=== PATIENT | male | born 1995 | race Caucasian/White ===

== ENCOUNTER 2022-05-17 00:01 | Emergency (ER) | payer OTHER ==
[~2022-05-17] VITALS: Ht 172.7 cm; Wt 88.5 kg
[2022-05-17 00:11] VITALS: BP_SYST 131
--- NOTE | 2022-05-17 00:16 | NUR ---
Patient recieved second dose of covid vaccine on 05/12 and started vomiting since 05/14. No other symptoms at this time.
[2022-05-17] MEDS: NACL 0.9% 1,000 ML IV ONE ×2 (01:12→02:25)
[2022-05-17] MEDS: ONDANSETRON HCL 4 MG/2 ML VIAL IVP ONE (01:13)
[2022-05-17] MEDS: ACETAMINOPHEN 500 MG TABLET PO ONE (01:15)
[2022-05-17] MEDS: LORazepam 2 MG/ML VIAL IVP ONE (01:15)
--- NOTE | 2022-05-17 01:16 | NUR ---
# 20 gauge angiocath placed to . Use of asceptic technique. Opsite placed over site. Blood return noted. Blood for lab drawn from site. Flushed with 10 cc of normal saline. No evidence of infiltration noted. Patient tolerated well.
[2022-05-17 01:21] LABS: WHITE BLOOD COUNT (AUTO) 5.7 K/uL (4.8-10.8)
[2022-05-17 01:25] LABS: CALCIUM 8.2 mg/dL (8.4-11.0); CREATININE 0.88 mg/dL (0.55-1.30)
[2022-05-17 01:27] LABS: BASOPHILS % (AUTO) 0.3 % (0.0-2.0); HEMATOCRIT 39.1 % (36-54); HEMOGLOBIN 14.2 g/dL (14.0-18.0); LYMPHOCYTES # (AUTO) 1.2 K/uL (1.0-5.5); LYMPHOCYTES % (AUTO) 20.4 % (20.5-51.5); MEAN CORPUSCULAR HEMOGLOBIN 34 pg (27-31); MEAN CORPUSCULAR HGB CONC 36 % (32-36); MEAN CORPUSCULAR VOLUME 93 fL (79.0-98.0); MONOCYTES # (AUTO) 0.5 K/uL (0.0-1.0); MONOCYTES % (AUTO) 8.4 % (1.7-9.3); NEUTROPHILS % (AUTO) 70.9 % (40.0-70.0); PLATELET COUNT (AUTO) 258 K/uL (130-430); RED CELL DISTRIBUTION WIDTH 13.5 % (9.0-15.0)
[2022-05-17 01:30] LABS: ALBUMIN 3.7 g/dL (3.4-4.8); TOTAL BILIRUBIN 2.7 mg/dL (0.0-1.0)
[2022-05-17 01:41] LABS: POTASSIUM 2.8 mmol/L (3.5-5.1)
--- NOTE | 2022-05-17 01:44 | NUR ---
Patient resting in bed, no signs of distress noted at this time. Waiting for further orders.
[2022-05-17] MEDS: POTASSIUM CHLORIDE 20 MEQ TAB.PRT.SR PO ONE (01:53)
[2022-05-17] MEDS ORDERED: ONDA-8 TL (02:16)
--- NOTE | 2022-05-17 02:25 | NUR ---
URINE SENT TO LAB
[2022-05-17] MEDS: PROCHLORPERAZINE EDISYLATE 10 MG/2 ML VIAL IVP ONE (02:51)
[2022-05-17 02:58] LABS: BILIRUBIN,URINE 1+ (NEGATIVE); BLOOD, URINE NEGATIVE (NEGATIVE); CLARITY/URINE CLEAR (CLEAR); COLOR,URINE ORANGE (YELLOW); GLUCOSE,URINE TRACE (NEGATIVE); KETONES,URINE 3+ (NEGATIVE); LEUKOCYTE ESTERASE ,URINE NEGATIVE (NEGATIVE); NITRITE, URINE NEGATIVE (NEGATIVE); PROTEIN URINE NEGATIVE (NEGATIVE)
[2022-05-17 03:13] LABS: BACTERIA,URINE RARE /HPF (None Seen); MUCUS,URINE 3+ /LPF (None Seen); RBC,URINE 0-3 /HPF (0-3)
--- NOTE | 2022-05-17 03:29 | NUR ---
Patient given written and verbal discharge instructions and verbalizes understanding. ER MD discussed with patient the results and treatment provided. Patient in stable condition. ID arm band removed. IV catheter removed intact and dressing applied, no active bleeding. Rx of zofran given. Patient educated on pain management and to follow up with PMD. Pain Scale . Opportunity for questions provided and answered. Medication side effect fact sheet provided.
== END 2022-05-17 03:28 | disposition home or self-care (01) ==
LOC: SED 00:01
DX: R11.2 Nausea with vomiting, unspecified (principal); E87.6 Hypokalemia; F41.9 Anxiety disorder, unspecified
CPT/HCPCS: 36415; 80053; 81000; 83690; 85025; 96361; 96374; 96375; 99284; J0780; J2060; J2405; J7030